=== PATIENT | female | born 1935 | race Caucasian/White ===

== ENCOUNTER 2019-04-20 11:39 | Inpatient (IN) ==
[2019-04-20] MEDS ORDERED: ASPIRIN PO ONE (11:53)
--- NOTE | 2019-04-20 12:18 | Diag Imaging Result Doc PS360 ---
EXAM: CHEST-2 VIEWS 04/20/2019 HISTORY: SOB/CP TECHNIQUE: Two views the chest COMMENT: There is blunting of the right costophrenic angle and ill-defined opacity in the adjacent parenchyma. There is a lesser degree of opacification of the left lateral costophrenic sulcus. This was not the case on 04/09/2014. The heart size is slightly enlarged. IMPRESSION: Bibasilar pneumonia with questionable pleural effusion on the right. Cardiomegaly. Electronically signed by Jack Crisostomo 04/20/2019 12:16 PM
--- NOTE | 2019-04-20 12:24 | EKG Report ---
Test Performed on : 04/20/2019 12:16:06 PM Test Reason : CP/SOB Blood Pressure : / mmHG Vent. Rate : 094 BPM Atrial Rate : 092 BPM P-R Int : 000 ms QRS Dur : 142 ms QT Int : 400 ms P-R-T Axes : 000 027 -15 degrees QTc Int : 500 ms Atrial fibrillation. Right bundle branch block Minimal voltage criteria for LVH, may be normal variant Abnormal ECG When compared with ECG of 09-APR-2014 17:02, Atrial fibrillation. has replaced Sinus rhythm. T wave inversion now evident in Lateral leads Unconfirmed Result
[2019-04-20 13:53] LABS: BASO# 0.03 X1000 (0.0-0.2); BASO% 0.4 % (0.0-0.8); EOS# 0.05 X1000 (0.0-0.7); EOS% 0.6 % (0.0-10.0); HEMATOCRIT 21.5 % (37.0-47.0); HEMOGLOBIN 6.6 g/dL (12.0-16.0); LYMPH# 1.17 X1000 (1.2-3.4); LYMPH% 13.8 % (20.5-51.1); MCH 27.3 PG (27-31); MCHC 30.7 g/dL (33-37); MCV 88.8 FL (81-99); MONO% 9.4 % (1.7-9.3); MPV 9.9 FL (7.4-10.4); NEUT# 6.43 X1000 (1.4-6.5); NEUT% 75.8 % (42.2-75.2); PLT 300 X1000 (130-400); RBC 2.42 XMIL (4.2-5.4); RDW 15.3 % (11.5-14.5); WBC 8.48 X1000 (4.8-10.8)
[2019-04-20 14:01] LABS: INR 1.1; PROTIME 14.3 Seconds (11.0-16.0); PTT 25.8 Seconds (22.3-41.8)
[2019-04-20 14:20] LABS: ALB/GLOB RATIO 1.6; ALBUMIN 3.9 g/dL (3.5-5.0); CALCIUM 9.7 mg/dL (8.8-10.2); CREATININE 1.1 mg/dL (0.5-0.9); POTASSIUM 4.3 mmol/L (3.5-5.1); TOTAL BILIRUBIN 0.33 mg/dL (0.20-1.00); TOTAL PROTEIN 6.3 g/dL (6.3-8.3)
[2019-04-20] MEDS ORDERED: TYLENOL PO ONE (14:43)
[2019-04-20] MEDS ORDERED: NS 500 ML IV ONE (14:43)
--- NOTE | 2019-04-20 15:01 | PROVIDER DOCUMENTATION ---
This chart was entered by Kelley Torres Scribe, acting as scribe for Guicho Chan MD. HPI-Chest Pain - General Chief Complaint: Chest Pain Stated Complaint: DR PRATHER SENT NEEDS BLOOD Time Seen by Provider: 04/20/19 12:16 Source: patient, family (daughter), RN/MD (dr prather) Allergies/Adverse Reactions: Patient Allergies Allergy/AdvReac Type Severity Reaction Status Date / Time adhesive Allergy HIVES Verified 04/09/14 17:07 codeine Allergy HIVES Verified 04/09/14 17:07 hydrocodone bitartrate * Allergy HIVES Verified 04/09/14 17:07 [From Lortab] morphine Allergy HIVES Verified 04/09/14 17:07 pentazocine lactate * Allergy HIVES Verified 04/09/14 17:07 [From Talwin] pregabalin [From Lyrica] Allergy HIVES Verified 04/09/14 17:07 propoxyphene HCl * Allergy HIVES Verified 04/09/14 17:07 [From Darvon] Home Medications: Home Medication List Medication Instructions Recorded Confirmed Last Taken Type Amlodipine Besylate [Norvasc] 2.5 mg PO DAILY 04/09/14 04/09/14 04/09/14 History Atorvastatin Calcium [Lipitor] 20 mg PO DAILY 04/09/14 04/09/14 04/09/14 History Iron 1 tab PO DAILY 04/09/14 04/09/14 04/09/14 History Losartan Potassium [Cozaar] 100 mg PO DAILY 04/09/14 04/09/14 04/09/14 History Multivitamin [Multi-Vitamin Daily] 1 tab PO DAILY 04/09/14 04/09/14 04/09/14 History Omeprazole [Prilosec] 20 mg PO DAILY@0700 04/09/14 04/09/14 04/09/14 History Potassium Chloride E.r. [Klor-Con] 10 meq PO DAILY 04/09/14 04/09/14 04/09/14 History - History of Present Illness-CP Nature of Presenting Problem: 84 yowf presents to the ed with c/owith Hgb 6.8 on [facility] blood work report today. dr prather sent pt to ed to receive blood. pt also sts for last 2 weeks she has had intermittent chest pain, sob, dizziness, fatigue and thoracic back pain. pt also was noted to be in afib and this would be new onset once in ed. pt on exam is pleasant and nontoxic in appearance Location: reports: substernal Chest Pain Radiation: reports: no radiation Quality of Pain: reports: aching Severity in ED: mild Onset/Duration: other (2 weeks) Timing: intermittent Context/Activities at Onset: reports: light activity Modifying Factors: improves with: rest. worse with: other (bending over and exertion) Associated Symptoms: reports: back pain, dizziness, fatigue, shortness of breath . denies: abdominal pain, nausea, syncope, vomiting Nitro Today/Relief: no nitro taken today Aspirin Treatment Today: 325 mg x 1, provided by ED Similar Symptoms Previously?: Yes Recently Seen Here or By Another Healthcare Provider: Yes (dr prather) Review of Systems - Adult - REVIEW OF SYSTEMS - ADULT Constitutional: reports: see HPI, fatique. denies: chills, fever Eyes: reports: no symptoms reported Ears, Nose, Mouth & Throat: reports: no symptoms reported Cardiovascular: reports: see HPI, chest pain. denies: palpitations, syncope Respiratory: reports: see HPI, shortness of breath. denies: cough, wheezing Gastrointestinal: denies: diarrhea, nausea, vomiting Genitourinary: reports: no symptoms reported Musculoskeletal: reports: see HPI, back pain. denies: neck pain Integumentary: reports: no symptoms reported Neurological: reports: see HPI, dizziness/vertigo. denies: headache/migraines, loss of balance, slurred speech Psychiatric: reports: no symptoms reported Endocrine: reports: no symptoms reported Hematologic/Lymphatic: reports: see HPI, low blood count, transfusions Allergic/Immunologic: reports: no symptoms reported All Other Systems: Reviewed and Negative Past History - Adult - PAST MEDICAL HISTORY-ADULT Review of Records: reports: Old Records Reviewed, Nursing Assessment Review, Medications Reviewed, Social history reviewed & non-contributory. Major Childhood Illnesses: reports: denies history Cardiovascular: reports: CHF, HTN, hyperlipidemia, PVD Respiratory: reports: denies history Gastrointestinal: reports: GI bleed, hepatitis (B) Obstetrical/Gynecological: reports: denies history Genitourinary: reports: denies history Musculoskeletal: reports: denies history Hand Dominance: Right Handed Neurological: reports: TIA Psychiatric: reports: denies history Endocrine/Immune: reports: thyroid disorder, other (parathyroid tumor) Other Conditions: reports: cataract/glaucoma - PRIOR SURGERIES/PROCEDURES Surgical/Procedure History: reports: cholecystectomy, hysterectomy, tonsillectomy, orthopedic (extremity), other (Kyphoplasty, carpal tunnel) - IMMUNIZATION STATUS Childhood Immunizations: See Nurse Assessment Flu Vaccine: See Nurse Assessment - FAMILY HISTORY Family History: reviewed, not pertinent - SOCIAL HISTORY Smoking: denies Substance Use: denies Living Situation: family Physical Exam-General - PHYSICAL EXAM-ADULT Initial Vital Signs Reviewed: Yes - CONSTITUTIONAL General Appearance: appears well, alert, no apparent distress - EYES Eyes: PERRL/EOMI - HEAD, EARS, NOSE, MOUTH & THROAT HENMT: moist mucous membranes - NECK Neck: non-tender, full range of motion, supple, normal inspection - RESPIRATORY Respiratory: chest non-tender, lungs clear, normal breath sounds - CARDIOVASCULAR Cardiovascular: irregularly irregular - CHEST (BREASTS) Chest/Breast: deferred - GASTROINTESTINAL (ABDOMEN) Abdominal Exam: normal bowel sounds, non tender, soft - GENITOURINARY Female Genitalia/Pelvic Exam: deferred Rectal Exam: normal exam, normal rectal tone. negative: hemorrhoids Hemoccult Exam: heme negative stool - LYMPHATIC Lymphatic: no adenopathy - MUSCULOSKELETAL Back Exam: no CVA tenderness, no vertebral tenderness Extremity: normal range of motion, non-tender, normal inspection - SKIN Integumentary: pallor - NEUROLOGIC Neurologic: grossly normal - PSYCHIATRIC Psych/Mental Status: normal mood/affect, normal thought content, normal thought process, oriented x 3 - HEART Score HEART Score: History: Moderately Suspicious HEART Score: ECG: Non-Specific Repolarization Disturbance/LBBB/PM HEART Score: Age: > or = 65 Years HEART Score: Risk Factors for Atherosclerotic Disease: 1 or 2 Risk Factors HEART Score: Troponin: < or = Normal Limit Total HEART Score:: 5 Progress - PLAN OF CARE/RESULTS Progress/Plan/Lab Results: Vital Signs - 8 hr 04/20/19 11:44 04/20/19 14:25 Temperature 98.0 F Pulse Rate 114 H 93 H Respiratory Rate 20 16 Blood Pressure 117/58 133/66 O2 Sat by Pulse Oximetry 99 100 04/20/19 13:35 Stool Occult Blood (MARGARITA) - Final Stool Laboratory Results - last 24 hr 04/20/19 04/20/19 04/20/19 13:35 13:35 13:35 WBC 8.48 RBC 2.42 L Hgb 6.6 L Hct 21.5 L MCV 88.8 MCH 27.3 MCHC 30.7 L RDW Std Deviation 15.3 H Plt Count 300 MPV 9.9 Neut % (Auto) 75.8 H Lymph % (Auto) 13.8 L [place] % (Auto) 9.4 H Eos % (Auto) 0.6 Baso % (Auto) 0.4 Neut # (Auto) 6.43 Lymph # (Auto) 1.17 L [place] # (Auto) 0.80 H Eos # (Auto) 0.05 Baso # (Auto) 0.03 PT INR PTT (Actin FS) Sodium 134 L Potassium 4.3 Chloride 101 Carbon Dioxide 24 L Anion Gap 9 BUN 24 H Creatinine 1.1 H Estimated GFR/1.73 m2 47 BUN/Creatinine Ratio 22 Glucose 102 Calculated Osmolality 272 Calcium 9.7 Total Bilirubin 0.33 AST 11 ALT 7 L Alkaline Phosphatase 39 Creatine Kinase 34 Troponin T High Sens [id number] Pept 2205 H Total Protein 6.3 Albumin 3.9 Globulin 2.4 Albumin/Globulin Ratio 1.6 04/20/19 04/20/19 13:35 13:35 WBC RBC Hgb Hct MCV MCH MCHC RDW Std Deviation Plt Count MPV Neut % (Auto) Lymph % (Auto) [place] % (Auto) Eos % (Auto) Baso % (Auto) Neut # (Auto) Lymph # (Auto) [place] # (Auto) Eos # (Auto) Baso # (Auto) PT 14.3 INR 1.10 PTT (Actin FS) 25.8 Sodium Potassium Chloride Carbon Dioxide Anion Gap BUN Creatinine Estimated GFR/1.73 m2 BUN/Creatinine Ratio Glucose Calculated Osmolality Calcium Total Bilirubin AST ALT Alkaline Phosphatase Creatine Kinase Troponin T High Sens 26 H [id number] Pept Total Protein Albumin Globulin Albumin/Globulin Ratio Orders Category Date Time Status Cardiac Monitoring DIRECTED Care 04/20/19 11:53 Active Consent for Test/Procedure DIRECTED Care 04/20/19 14:43 Active Notify if DIRECTED Care 04/20/19 14:43 Active Oxygen Therapy- ED Nursing DIRECTED Care 04/20/19 11:53 Active Saline Loc NOW Care 04/20/19 11:53 Active CHEST-2 VIEWS [RAD] Stat Exams 04/20/19 11:[address] ANGIOGRAM ABD/PELIVS W/CON [CT] Stat Exams 04/20/19 14:58 Ordered CBC WITH ELECTRONIC DIFF [HEME] Stat Lab 04/20/19 13:35 Completed CK PROFILE [SP CHEM] Stat Lab 04/20/19 13:35 Completed COMPREHENSIVE METABOLIC PANEL [CHEM] Stat Lab 04/20/19 13:35 Completed LRPC (RED CELLS) [BBK] Stat Lab 04/20/19 14:43 Uncollected OCCULT BLOOD SCREENING [STOOL] Stat Lab 04/20/19 13:35 Completed PRO B-NATRIURETIC PEPTIDE Stat Lab 04/20/19 13:35 Completed PROTIME WITH INR [COAG] Stat Lab 04/20/19 13:35 Completed PTT [COAG] Stat Lab 04/20/19 13:35 Completed TROPONIN T HIGH SENSITIVITY Stat Lab 04/20/19 13:35 Completed TYPE & SCREEN [BBK] Stat Lab 04/20/19 13:35 Received 0.9% Sodium Chloride Inj [Ns] 500 ml Med 04/20/19 14:43 Active IV 30 mls/hr Acetaminophen [Tylenol] Med 04/20/19 14:43 Discontinued 650 mg PO PREMED ONE Aspirin Med 04/20/19 11:53 Discontinued 325 mg PO NOW ONE CP/SOB/Palp >45 yrs of Age Stat Oth 04/20/19 11:53 Ordered EKG [EKG] Stat Ther 04/20/19 11:53 Draft Result Diagrams: 04/20/19 13:35 04/20/19 13:35 - EKG 1 Time of EKG reading by physician:: 12:16 EKG Read and Signed by:: Guicho Chan EKG Interpretation (*Must complete 3 of following elements*): Abnormal Rate: 94 Rhythm: afib [place]: normal QRS: RBB, LVH WA Interval: normal ST Wave: normal - XRAY 1 XRAY: Bilateral XRAY Study: Chest Impression: See EMR Report (EXAM: CHEST-2 VIEWS 04/20/2019 HISTORY: SOB/CP TECHNIQUE: Two views the chest COMMENT: There is blunting of the right costophrenic angle and ill-defined opacity in the adjacent parenchyma. There is a lesser degree of opacification of the left lateral costophrenic sulcus. This was not the case on 04/09/2014. The heart size is slightly enlarged. IMPRESSION: Bibasilar pneumonia with questionable pleural effusion on the right. Cardiomegaly. Electronically signed by Jack Crisostomo 04/20/2019 12:16 PM 04/20/19 1216 Interpreting Physician: Jack Crisostomo MD Dictated Date/Time: 04/20/19 1215 cc: Guicho Chan MD; Natalie Johnson) - CONSULTS/PCP/HOSPITALIST Notification #1 *Consult/PCP/Hospitalist*: Cecy INVESTIGATIVE REPORTER for Hospitalist Time Discussed: 14:59 Consult Disposition: Will see in ED, Admit Departure - Departure Date of Disposition Decision: 04/20/19 Time of Disposition Decision: 14:56 DIAGNOSIS: Anemia, Gastrointestinal bleed, Chest pain, A-fib, Renal insufficiency, CHF (congestive heart failure) Disposition: ADMITTED INPATIENT 09 Certified Medical Emergency: Emergent Condition: Fair Referrals and Follow-Ups: Natalie Johnson [Primary Care Provider] - - Critical Care Note This patient required my direct & personal management of CC.: Yes Total Time (mins): 37 Critical Care Statement: This patient required my direct personal management to treat or rule out processes, the absence of which, could potentiallly result in sudden, clinically significant life or limb threatening deterioration. Attestation - Physician/ OSIRIS Attestation Patient care was provided by Advanced Practice Provider:: No The physician spent face to face time with patient:: Yes Advanced Practice Provider documentation review:: Supervising physician onsite and consulted in the evaluation and care of this patient. The physician did have a face to face encounter with the patient. This chart was documented by the indicated scribe, (Kelley Torres Scribe) and accurately reflects the services I performed and decisions made by me, Guicho Chan MD, as attested by the provider's signature.
[2019-04-20] MEDS ORDERED: TYLENOL PO PRN (15:04)
[2019-04-20] MEDS ORDERED: ZOFRAN IV PRN (15:04)
[2019-04-20] MEDS ORDERED: NS 1,000 ML IV SCH (15:04)
[2019-04-20] MEDS ORDERED: SODIUM CHLORIDE 0.9% INJ SCH (15:15)
[2019-04-20] MEDS: PROTONIX IV SCH (15:34)
[2019-04-20 15:41] LABS: IRON SATURATION 65 %; TIBC 689 ug/dL; TOTAL IRON 450 ug/dL (49-151); UNBOUND IRON 239 ug/dL (112-346)
[2019-04-20 16:00] LABS: FERRITIN 12 ng/mL (13-150)
--- NOTE | 2019-04-20 16:23 | Diag Imaging Result Doc PS360 ---
CT ANGIOGRAM ABD/PELIVS W/CON - 04/20/2019 INDICATION: gi bleeding TECHNIQUE: Axial CT images were obtained after administering intravenous contrast. Coronal MIP images were generated. COMPARISON: 01/30/2011 FINDINGS: There is significant cardiomegaly that has worsened since prior. There is a trace pericardial effusion. There is interstitial pulmonary edema in the lung bases. There is severe vascular disease of the abdominal aorta diffusely. No aneurysm. There are kissing stents in the aortic bifurcation. The stents are patent. 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 There is severe stenosis at the origin of both renal arteries, narrowed by about 75%. The inferior mesenteric artery is grossly patent. There is very heavy disease of the iliac artery systems bilaterally, but no severe stenosis. There is severe to critical stenosis of both superficial femoral arteries with 75-90% narrowing. There are cysts of the right kidney. There is bilateral renal artery cortical scarring. There is mild to moderate constipation. No free air or free fluid. No lymphadenopathy. There is a right total hip prosthesis in good position. There is high-grade compression fracture of L5 with vertebroplasty cement inside. There is severe degeneration throughout the spine. IMPRESSION: 1. Congestive heart failure. 2. 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 Other severe vascular disease as described above. This exam was performed using automated exposure control, adjustment of mA or kV according to patient size, and/or use of iterative reconstruction technique Electronically signed by Prince Brown 04/20/2019 4:21 PM
[2019-04-20] MEDS ORDERED: LASIX IV ONE (16:28)
[2019-04-20] MEDS ORDERED: LOPRESSOR IV PRN (17:19)
[2019-04-20] MEDS ORDERED: ROCEPHIN 500 MG in NS 50 ML IV SCH (18:00)
--- NOTE | 2019-04-20 18:43 | HISTORY AND PHYSICAL ---
ADDENDUM: The patient seen and examined by me [id number]. All the laboratory, vital signs and images were reviewed. The patient was actually sent from Dr. Scherer's office due to low hemoglobin, it looks like she received treatment with iron at the clinic, she will receive 2 units of PRBCs. It has been already all ordered by the ER doctor. We also noticed that this patient's heart rate was elevated and it turns out that this is related to atrial fibrillation, which initially was in RVR, but now seems to be stable in the 90s and 100s. We did also an occult blood in the stool that is positive, her blood pressure seems to be stable, mostly between 120s and 140s. I will start this patient on a low dose of Cardizem 30 mg every 6 hours to see how she does and also Lopressor IV as needed. I will not put this patient on anticoagulation because of her gastrointestinal bleed. We will put this patient on proton pump inhibitors twice a day as well. Her physical exam is benign except for an irregularly regular rate and rhythm with systolic murmur. She is completely awake, alert, and she is oriented x3. No focal neurological deficits noted. She does have a history of vascular disease and actually we did a CT angiogram that showed a severe stenosis of origin of the superior mesenteric artery and renal arteries, and other severe vascular disease as described. Also, this each showed some CHF. She receive a dose of Lasix and the proBNP is slightly elevated at 2205. Previously, in 2015 it was 630, I do not have a recent echocardiogram and actually I do not have an echocardiogram to compare to before, so I will ask for an echocardiogram at this time. The patient seems to be stable. On the other hand, we have discussed her advanced directive. She has decided to go ahead and be a DNR level 1, so I will honor her wishes. So, I will monitor the hemoglobin and hematocrit every 6 hours. She will receive 2 units of PRBCs and we will go from there. I agree with the rest of the nurse practitioner's assessment and plan. cc: Josh Black MD
--- NOTE | 2019-04-20 19:02 | HISTORY AND PHYSICAL ---
PRIMARY CARE PROVIDER: DR. Johnson. PRIMARY OBSTETRICS SCRUB NURSE: DR. Isidro. CHIEF COMPLAINT: She went to Dr. Scherer's office who found her to be anemic and sent her here. HISTORY OF PRESENT ILLNESS: Ms. Sarah Reyez is an 84-year-old female with a medical history of iron deficiency anemia, peripheral vascular disease, multiple stents, systolic and diastolic heart failure, hepatitis B, who apparently went today for iron infusion. She has been feeling weak, having some shortness of breath, and chest pressure for about a week. The dark stools that she has complained about she has had those for years. She feels like it is not any different than it has ever been. Her normal bowel movement regimen tends to be one every 3 or 4 days. Sometimes, she does have abdominal cramps and has diarrhea from time to time but not very often. As far as the chest pressure goes, it does not radiate in any direction. She has not been coughing up any colors, she has just been having the chest pressure and some shortness of breath. Denies any lower extremity swelling so workup was performed. She had a CT of the abdomen that did show some mesenteric artery and renal artery stenosis, and congestive heart failure. She denies any abdominal pain with this. Also, found she has new atrial fibrillation; rate is somewhat controlled. On chest x-ray, she has pneumonia. The stool that was sampled was positive for blood so she is going to be admitted for further treatment and evaluation. PAST MEDICAL HISTORY: 1. Coronary artery disease. 2. Peripheral vascular disease with bilateral iliac and descending aortic stents. 3. Hypertension. 4. TIA in 2005. 5. Systolic and diastolic congestive heart failure. 6. History of hepatitis B. 7. Polyps with polypectomies. 8. History of GI bleed. 9. Iron deficiency anemia with history of iron transfusions. 10. Carotid tumors with removal, and states that the carotid artery disease she has completely occluded on the left and only has 30% that is not occluded on the right. PAST SURGICAL HISTORY: 1. Cholecystectomy. 2. Tonsillectomy. 3. Hysterectomy. 4. Last colonoscopy with polypectomy is in 2019. 5. Cataract. 6. Right parotid tumor removed. 7. Right carotid surgery. 8. Cystoscopy. 9. Parotid tumor removed on the left so she has had bilateral parotid tumors removed. 10. Bilateral carpal tunnel. 11. Right femoral stent. 12. Kyphoplasty. 13. Total right hip. SOCIAL HISTORY: She denies tobacco, alcohol or illicit drug use. She lives with her daughter. 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 FAMILY HISTORY: Mother: No medical conditions. Father had heart attack. ALLERGIES: Adhesives, codeine, hydrocodone, morphine, Talwin, Lyrica, propoxyphene, and they all cause hives. HOME MEDICATIONS: Not been reconciled. What she has on a printout that she gave me was: 1. Cilostazol 50 mg twice daily. 2. Cozaar 100 mg daily. 3. Norvasc 10 mg daily. 4. Tricor 48 mg daily. 5. Protonix 40 mg p.o. daily. 6. Lipitor 80 mg daily. 7. Vitamin D3 1000 units daily. 8. B12 600 mg daily. 9. Calcium 200 mg daily. 10. Aspirin 81 mg daily. REVIEW OF SYSTEMS: Fourteen point review of systems are complete. All were negative except those mentioned above in HPI. PHYSICAL EXAMINATION: VITAL SIGNS: Temperature 97.8, heart rate 99, respiratory rate 14, blood pressure 131/62, and O2 saturation 97% on room air. GENERAL: Ms. Sarah Reyez is an 84-year-old female. She is in no acute distress. She is able to answer questions appropriately. HEENT: Atraumatic, normocephalic. Pupils equal, round, and reactive to light. Extraocular movements intact. Mucous membranes are moist. NECK: Trachea midline. CARDIOVASCULAR: Irregularly irregular rate and rhythm. No rubs, gallops, murmurs. Trace lower extremity edema. +2 dorsalis and radial pulses. Actually, she does have a murmur. She has a prior about a 3/6 systolic ejection murmur. Negative for JVD or carotid bruits. PULMONARY: Clear to auscultation. Bilateral breath sounds. No accessory muscle use or work of breathing noted. ABDOMEN: Soft, nontender, and nondistended. Positive bowel sounds x4. EXTREMITIES: Moves all extremities equally. Full range of motion. NEUROLOGIC: A and O x3. Follows commands. Sensory is intact. SKIN: Warm and dry. Intact. LABORATORY DATA: White blood cells 8000 hemoglobin 6.6, hematocrit 21.5, and platelet count 300,000. INR is 1.10 PTT is 25.8. Sodium 134, potassium 4.3, BUN 24, creatinine is 1.1 and glucose 102. Iron is 450. Total iron binding capacity is 689, saturation 65, ferritin 12, T bilirubin is 0.33, AST 11, ALT 7. CK 34. Troponin 26. ProBNP is 205. Albumin 3.9. Vitamin B12 is 1245. 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 Chest x- ray: Bibasilar pneumonia, questionable right pleural effusion and cardiomegaly. EKG atrial fibrillation, rate 94, and QTc was 500. ASSESSMENT/PLAN: 1. New onset atrial fibrillation without RVR at this time. No medical history. She is only on aspirin at home. We will get a consult in for Cardiology and do an echocardiogram. Hold off on blood thinners right now as she is actually here with a GI bleed and low hemoglobin and hematocrit. 2. Most likely upper GI bleed. All of her bowel movements have been dark. She has no pain with it. She actually has constipation, and only bowel movement once every 3 or 4 days, but occasionally will have diarrhea. The stool sample that was sent was positive for blood. She does have history of polyps and most recently had polypectomy [place] [address] Isidro. We will put a consult in for GI. 3. Acute blood loss anemia secondary to GI bleeding. She will get 2 units of blood. Vital signs stable. 4. Iron deficiency anemia. She sees Dr. Scherer and gets iron transfusions. We will consult him. Her iron level is actually on the high side. 5. Possibly a mild acute systolic diastolic congestive heart failure. Since she is getting blood, we are going to go ahead and give her some Lasix with that blood. She does not take Lasix at home. She does not have significant lower extremity edema. 6. Mild acute kidney injury. Again, she will get some IV fluid hydration. We will recheck the labs in the morning. 7. Hypertension. Once home medications are verified, we will get those started. 8. History of TIA and severe peripheral arterial disease with multiple stents. At home, she is only on aspirin. I believe Dr. Scherer stopped her Plavix on the of this month. 9. Deep venous thrombosis prophylaxis. SCD's. Dictated by BOBBY Jauregui for Josh Black MD cc: BOBBY Jauregui MD
[2019-04-20] MEDS ORDERED: ULTRAM PO PRN (19:15)
[2019-04-20] MEDS: CARDIZEM PO SCH (20:13)
[2019-04-20] MEDS: CARAFATE LIQUID PO SCH (20:13)
[2019-04-20 21:48] LABS: CALCIUM 9.5 mg/dL (8.8-10.2); MAGNESIUM 2.1 mg/dL (1.5-2.7); PHOSPHORUS 3.4 mg/dL (2.7-4.5); POTASSIUM 3.9 mmol/L (3.5-5.1)
[2019-04-20 22:25] LABS: HEMATOCRIT 26.6 % (37.0-47.0); HEMOGLOBIN 8.2 g/dL (12.0-16.0)
[2019-04-21] MEDS: CARAFATE LIQUID PO SCH ×2 (02:43→08:39)
[2019-04-21] MEDS: CARDIZEM PO SCH ×2 (02:43→08:39)
[2019-04-21] MEDS: PROTONIX IV SCH (02:45)
[2019-04-21 03:00] LABS: HEMATOCRIT 30.7 % (37.0-47.0); HEMOGLOBIN 9.7 g/dL (12.0-16.0)
[2019-04-21 07:05] LABS: BASO# 0.04 X1000 (0.0-0.2); BASO% 0.5 % (0.0-0.8); EOS# 0.09 X1000 (0.0-0.7); EOS% 1.1 % (0.0-10.0); HEMATOCRIT 30.5 % (37.0-47.0); HEMOGLOBIN 9.4 g/dL (12.0-16.0); LYMPH# 0.81 X1000 (1.2-3.4); LYMPH% 9.6 % (20.5-51.1); MCH 26.6 PG (27-31); MCHC 30.8 g/dL (33-37); MCV 86.2 FL (81-99); MONO# 0.93 X1000 (0.11-0.59); MPV 10.2 FL (7.4-10.4); NEUT# 6.58 X1000 (1.4-6.5); NEUT% 77.8 % (42.2-75.2); PLT 291 X1000 (130-400); RBC 3.54 XMIL (4.2-5.4); WBC 8.45 X1000 (4.8-10.8)
[2019-04-21 07:23] LABS: ALB/GLOB RATIO 1.3; ALBUMIN 3.9 g/dL (3.5-5.0); CALCIUM 9.2 mg/dL (8.8-10.2); POTASSIUM 3.4 mmol/L (3.5-5.1); TOTAL BILIRUBIN 0.69 mg/dL (0.20-1.00)
[2019-04-21 10:54] LABS: HEMATOCRIT 30.5 % (37.0-47.0); HEMOGLOBIN 9.5 g/dL (12.0-16.0)
--- NOTE | 2019-04-21 11:18 | GASTROENTEROLOGY CONSULTATION ---
DATE: 04/21/2019 REASON FOR CONSULT: GI bleed. HISTORY OF PRESENT ILLNESS: Ms Reyez is an 84-year-old female HTN, HLD, CAD, PVD with LE stents and CEA, CHF, LESLIE, colonic AVMs, colonic polyps, gastritis who presented from Dr. Scherer's office with worsening acute on chronic anemia hgb w/ intermittent melenic stools. She also complained of shortness of breath, feeling like a pressure is on chest, back pain, but denied any abdominal pain, nausea or vomiting. No gross hematochezia, hematemesis, blood clots, or abdominal pain. On admission her hemoglobin and hematocrit was 6.6 and 21.5. She has received 2 units of blood so far. The patient used to take Plavix and it was stopped by Dr. Scherer on 04/14 and he started her on aspirin 81 mg 1 tablet daily. She had EGD and colonoscopy in 09/2018. No prior capsule endoscopy, which was recommended in the past. PAST MEDICAL HISTORY: Coronary artery disease, peripheral vascular disease with bilateral iliac and descending aorta stents, hypertension, TIA in 2005, congestive heart failure, history of hepatitis B, history of polyps, history of GI bleed, iron deficiency anemia with history of iron transfusions PAST SURGICAL HISTORY: Cholecystectomy, tonsillectomy, hysterectomy, cataracts, right parotid tumor removed, right carotid surgery, cystoscopy, left parathyroid tumor removed, bilateral carpal tunnel, right femoral stent, kyphoplasty, total right hip replacement. ALLERGIES: The patient is allergic to is adhesives, codeine, hydrocodone, morphine, Talwin, Lyrica, Betadine, Darvon and its compounds.. FAMILY HISTORY: Positive for heart disease. SOCIAL HISTORY: The patient is a . She lives with a daughter. She has denied any alcohol, tobacco, or illicit drug use. MEDICATIONS ARE: Atorvastatin, calcium 80 mg p.o. daily, amlodipine besylate 10 mg p.o. daily, Losartan potassium 100 mg p.o. daily, aspirin 81 mg p.o. daily, B12/levomefolate calcium 1 tablet sublingual daily, vitamin D3 1000 units p.o. daily. Cilostazol 50 mg p.o. twice a day. Tricor 48 mg p.o. daily, Protonix 40 mg p.o. daily. aspirin REVIEW OF SYSTEMS: As per HPI. Otherwise, 12 point review of system is negative. PHYSICAL EXAMINATION: Vital Signs: Temperature 97.9 degrees, pulse 87, respirations 20, blood pressure 141/57, oxygen saturation is 93% on room air. The patient's weight is 133 pounds. BMI is 22.8 kg/m2. General: She is alert, oriented x3. No acute distress. Answering questions appropriately. HEENT: Pale conjunctivae. No icterus. PERRL. Neck: Supple. Lungs: Clear to auscultation. Cardiovascular: Regular rate and rhythm. Abdomen: Soft, nontender, nondistended. Active bowel sounds heard in all 4 quadrants. Extremities: No clubbing, no cyanosis, no edema. Pedal pulses 2+ present bilaterally. Neurologic: Alert oriented x3. Nonfocal. Cranial nerves 2- 12 grossly intact. LABORATORY DATA: WBCs are 8.45, RBC 3.54, hemoglobin 9.4, hematocrit 30.5, platelet count 291,000. PT 14.3, INR is 1.10. Sodium 138, potassium 3.4, chloride 100, carbon dioxide 24, anion gap 14, BUN 17, creatinine 1.0, glucose 106, calcium 9.2, magnesium 2.0, total bilirubin 0.69, AST 15, ALT 7, alkaline phosphatase is 44. MICROBIOLOGY: The patient's occult stool blood was positive. 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 The other severe vascular disease as described. A chest x-ray on 04/20 showed bibasilar pneumonia with questionable pleural effusion on the right, cardiomegaly. EGD/colonoscopy 09/2018 She is a patient of Dr. Isidro and had a colonoscopy and EGD done on 10/12/2018. The EGD showed that she had erosive gastritis in the body of the stomach, normal cardia, fundus, and incisura, normal duodenal bulb polyp. A polyp was found in the second portion of the duodenum. Colonoscopy showed five small and medium size polyps were found in the splenic flexure polypectomy was performed. A single medium-size polyp was found in the descending colon which was removed. Area of angiectasias/AVM was found in the cecum and the ascending colon. Internal grade 2 hemorrhoids found in the anus. Tattoo noted at the splenic flexure from the previous polypectomy. Small flat polyps noted in the left colon that will be removed in the next colonoscopy in 1 to 2 years. Biopsy was done and it showed that the splenic flexure polyps x5 biopsy showed that she had a tubular adenoma, but no high-grade dysplasia or neoplasia was seen in the descending colon. One polyp biopsy showed tubular adenoma. No high-grade dysplasia or neoplasia noted. IMPRESSION AND PLAN: GI bleed Acute on chronic LESLIE Iron deficiency anemia Gastritis Colonic AVMs History of polyps Hemorrhoids CAD PVD Hypertension PLAN: Ms Reyez is an 84-year-old female HTN, HLD, CAD, PVD with LE stents and CEA, CHF, LESLIE, colonic AVMs, colonic polyps, gastritis who presented with worsening acute on chronic LESLIE anemia hgb w/ intermittent melenic stools. GI has been consulted for a GI bleed. The patient's hemoglobin and hematocrit on admission was 6.6 and 21.5. She has received 2 units of blood so far. Her hemoglobin and hematocrit now is 9.4 and 30.5. Platelets and coags WNL. She is on PPI IV BID and NPO. Will plan for diagnostic EGD. If negative, patient will need outpatient capsule endoscopy. Thank you for the consult. Please call us for any further questions or concerns. Dictated by BOBBY Garcia for Kalyan Perea MD Physician Attestation I have seen and examined the patient. I have discussed and reviewed the note by Usha ROSALES and agree with findings and plan as documented. Patient has had intermittent melenic stools since her last admission in 09/2018. She was on plavix and recently aspirin. Will plan for EGD. If negative, then will need capsule. MTDD
--- NOTE | 2019-04-21 11:25 | ENDOSCOPY OPERATIVE NOTE ---
[facility] ENDOSCOPY OPERATIVE NOTE , EGD PROCEDURE REPORT EXAM DATE: 04/21/2019 PATIENT NAME: Sarah Reyez MR#: [id number] BIRTHDATE: 1935 ATTENDING: Kalyan Perea MD STATUS: inpatient MOLD PULLER: INDICATIONS: The patient is a 84 yr old female here for an EGD due to melena and iron deficiency ane taylor. PROCEDURE PERFORMED: EGD, diagnostic MEDICATIONS: Per Anesthesia ESTIMATED BLOOD LOSS: None CONSENT: The patient understands the risks and benefits of the procedure and understands that these r isks include, but are not limited to: sedation, allergic reaction, infection, perforation and/or bleeding. Alternative means of evaluation and treatment include, among others: physical exam, x-rays, and/or surgical intervention. The patient elects to proceed with this endoscopic procedure. DESCRIPTION OF PROCEDURE: During pre-op preparation period all mechanical and medical equipment was c hecked for proper function. Hand hygiene and appropriate measures for infection prevention was taken. After the risks, benefits and alternatives of the procedure were thoroughly explained, Informed consent was verified, confirmed and timeout was successfully executed by the treatment team. The patient was anesthetized with topical anesthesia and the DN31-s16 ([id number]) endoscope was introduced through the mouth and advanced to the second portion of the duoden um. Retroflexion was performed in the stomach and revealed no abnormalities. The gastroscope was then slowly withdraw n and removed. The patient's toleration of the procedure was excellent. ESOPHAGUS: The mucosa of the esophagus appeared normal. STOMACH: The stomach was normal. DUODENUM: Small lipoma in second portion of duodenum. ADVERSE EVENTS: There were no complications. IMPRESSIONS: 1. The mucosa of the esophagus appeared normal 2. The stomach was normal 3. Lipoma RECOMMENDATIONS: Stop IV PPI, transition to PO once daily Advance diet as tolerated Recommend outpatient capsule endoscopy Avoid NSAIDs Patient can be discharged per primary with follow-up in 2-4 weeks REPEAT EXAM: Kalyan Perea MD eSigned: Kalyan Perea MD 04/21/2019 11:24 AM CC: CPT CODES: 86687 Upper gastrointestinal endoscopy including esophagus, stomach, and either the du odenum and/or jejunum as appropriate; diagnostic, with or without collection of specimen(s) by brushing or washing (separate procedure) ICD CODES: 578.1 Blood in stool 280.9 Iron deficiency anemia,unspecified The ICD and CPT codes recommended by this software are interpretations from the data that the [facility] staff has captured with the software. The verification of the translation of this report to the ICD and CPT co breanna and modifiers is the sole responsibility of the health care institution and practicing physician where this report was generated. [employer] will not be held responsible for the validity of the ICD and CPT codes i ncluded on this report. [employer] assumes no liability for data contained or not contained herein. CPT is a registered tra demark of the [employer]. PATIENT NAME: Sarah Reyez MR#: [id number]
[2019-04-21] MEDS ORDERED: XYLOCAINE-MPF 2% ONE (11:26)
[2019-04-21] MEDS ORDERED: AMIDATE ONE (11:27)
--- NOTE | 2019-04-21 12:43 | ECHO REPORT ---
ORDER DATE: 04/21/2019 INTERPRETING PHYSICIAN: Quang Zamorano MD. ECHOCARDIOGRAPHIC MEASUREMENTS: 1. Interventricular septum 1.2. 2. Left ventricular posterior wall 1.2. 3. Diastolic diameter 3.9. 4. Left atrium 4. 5. Aorta 3.2. FINDINGS: 1. Aortic valve leaflets were trileaflet, calcified. 2. There is severe biatrial enlargement. 3. Mitral valve was normal. There is mitral annular calcification. 4. Tricuspid valve was normal. There is mild mitral regurgitation. 5. Atrial fibrillation was noted. 6. There is moderate tricuspid regurgitation. Peak velocity across the tricuspid valve was 3 m/sec. Pulmonary artery systolic pressure 50 mmHg. 7. Normal left ventricular cavity size. Concentric left ventricular hypertrophy. Estimated ejection fraction of 70%. 8. Peak velocity across the aortic valve was 3.2 m/sec with a maximum gradient of 40 mmHg with a mean gradient of 21 mmHg, aortic valve area of 1 cm2. There is there is moderate aortic stenosis. 9. Anterior echo-free space suggestive of pericardial fat pad noted. 10. There is no pericardial effusion or obvious intracardiac mass or thrombus seen. cc: MD Josh Cordova MD
--- NOTE | 2019-04-21 13:38 | CONSULTATION ---
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 HPI: Patient presented to our office yesterday to receive IV iron for iron deficiency anemia that was noted the prior week. She came in yesterday with complaints of fatigue, dizziness and lightheadedness. She had noted some bright red bleeding on her toilet paper while wiping. She is noted to have grade 2 hemorrhoids. The patient was just recently told to stop plavix. Upon evaluation of yesterday's CBC the patient was found to have dropped a significant amount in her hemoglobin to 6.8. She was symptomatic. We sent her to the ER for a blood transfusion and which she was ultimately admitted. Patient has a history of iron deficiency anemia and peripheral vascular disease, multiple stents, systolic and diastolic heart failure. She admitted that she was having some shortness of breath and chest pressure for the past week. She has had recent dark stool. PAST MEDICAL HISTORY: 1. Coronary artery disease. 2. Peripheral vascular disease with bilateral iliac and descending aortic stent. 3. Hypertension. 4. TIA in 2005. 5. Systolic and diastolic congestive heart failure. 6. History of hepatitis B. 7. History of GI bleed. 8. Iron deficiency anemia with history of iron transfusions. 9. Carotid tumors with removal and states that the carotid artery disease she has completely occluded on the left and only 30% not occluded on the right. PAST SURGICAL HISTORY: 1. Cholecystectomy. 2. Tonsillectomy. 3. Hysterectomy. 4. Colonoscopy with polypectomy in 2019. 5. Cataract. 6. Right parotid tumor removal. 7. Right carotid surgery. 8. Cystoscopy. 9. Parotid tumor removed on the left so she has had bilateral parotid tumors removed. 10. Bilateral carpal tunnel. 11. Right femoral stent. 12. Kyphoplasty. 13. Total right hip. SOCIAL HISTORY: The patient denies tobacco, alcohol or illicit drug use. ALLERGIES: Adhesives, codeine, hydrocodone, morphine, Talwin, Lyrica, propoxyphene. HOME MEDICATIONS: Norvasc, aspirin, Lipitor, B12, B6 vitamin, vitamin D3, cilostazol, Tricor, Cozaar and Protonix, recently stopped Plavix. REVIEW OF SYSTEMS: Pertinent positives are noted in the HPI. PHYSICAL EXAMINATION: Vital Signs: Temperature 97.8 degrees, pulse rate 87, respiratory rate 20, blood pressure 141/73, O2 saturation 96% on room air, she is in 0/10 pain. General: Patient is in no acute distress. She feels quite well today. HEENT: Sclerae is anicteric. PERRLA. Oral mucosa is normal. Cardiovascular: Irregular rate and rhythm. Systolic murmur noted. Normal S1, S2. Trace lower extremity edema. Respiratory: Lungs are clear to auscultation. Normal respiratory effort. Abdomen: Soft, nontender, nondistended. Positive bowel sounds. Extremities: Moves all extremities at will. Neurological: A and O x3. No focal motor deficits noted. Skin: Warm, dry, and intact. No evidence of petechiae, ecchymosis or rashes. LABORATORY: WBCs 8.54, hemoglobin 9.5, hematocrit 30.5, platelet count 291,000, ANC 6.58. Potassium 3.4, creatinine 1.0. Her iron panel is falsely elevated due to receiving iron just hours before. RADIOLOGY: Echocardiographic report shows patient is in atrial fibrillation with an ejection fraction of 70%. 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 Chest x-ray shows bibasilar pneumonia with questionable pleural effusions on the right and cardiomegaly. ASSESSMENT: 1. Acute blood loss anemia secondary to gastrointestinal bleeding, the patient received 2 units of packed red blood cells. Her hemoglobin and hematocrit has improved, the patient feels much better, vital signs are stable. 2. New onset atrial fibrillation without rapid ventricular response. Patient has been medical history of atrial fibrillation. Continue to consult Cardiology. 3. Gastrointestinal bleeding. Consult GI. Patient has had black bowel movements as well as constipation. Patient will receive an EGD possibly today. 4. Iron deficiency anemia. The patient has a long history of iron deficiency anemia, the patient did receive intravenous Injectafer 750 mg on 04/20/2019 she will receive a 2nd dose next week. 5. Deep venous thrombosis prophylaxis. Keep the patient on sequential compression devices, hold anticoagulant due to patient experiencing gastrointestinal bleeding. Dictated by BOBBY Pavon for Alexi Scherer MD Patient seen and examined. As above. Patient has chronic GI bleeding due to AVMs followed by . She has received IV iron multiple times. She received IV iron last on 12/21/18 for hemoglobin of 8.4. On 01/17/19 hemoglobin improved to 11.2. She dropped to 8.8 on 04/12/19. We made arrangements for IV iron saw her back a week later and her hemoglobin had dropped to 6.8. This time she has dropped her hemoglobin faster than usual. She was admitted to the hospital for GI evaluation, blood and IV iron. Alexi Scherer MD cc: Alexi Scherer MD [facility]
--- NOTE | 2019-04-21 14:27 | PROGRESS NOTE ---
DATE: 04/21/2019 SUBJECTIVE: Patient has no major complaints. OBJECTIVE: Vital Signs: Blood pressure 117/56, heart rate of 83, respiratory rate of 17, temperature 97.6 degrees. Cardiovascular: Regular rate and rhythm. Pulmonary: Bilateral breath sounds clear to auscultation. Abdomen: Soft, nontender, nondistended. Bowel sounds are positive. LABORATORY DATA: White count is 8, hemoglobin and hematocrit 9 and 30, platelets 291,000. Potassium 3.4, creatinine 1. PROBLEM LIST: 1. Atrial fibrillation with rapid ventricular response. Unclear if this is new onset, but in any case, she is rate controlled. Obviously we cannot anticoagulate her, which is a concern because she is high risk for stroke. I have discussed this with the family. 2. Symptomatic anemia. She has received 2 units of blood, and hemoglobin and hematocrit is stabilized. We will continue to follow closely. 3. Gastrointestinal bleed. Unclear source. Her upper endoscopy was really normal. Colonoscopies have revealed polyps and arteriovenous malformations in the past but no acute bleed, so she is going to be due to set up for a capsule endoscopy with Dr. Duane kumar who is doing those now and then evaluation subsequently. 4. Mesenteric ischemia SMA stenosis. We will continue to monitor. I have asked Dr. Moreno to evaluate for treatment options and we will continue to follow. If her hemoglobin and hematocrit are stable, she possibly could go home later today or tomorrow. cc: Fredo Dacosta MD
[2019-04-21 18:54] LABS: HEMATOCRIT 30.7 % (37.0-47.0); HEMOGLOBIN 9.7 g/dL (12.0-16.0)
--- NOTE | 2019-04-21 18:55 | CONSULTATION ---
DATE OF CONSULTATION: 04/21/2019 IMPRESSION: 1. Atrial fibrillation with rapid ventricular rate on presentation, probably ongoing for several days. Heart rate now better controlled. 2. Associated symptoms of chest pressure, possibly rate related angina in setting of atrial fibrillation with rapid ventricular rate and significant anemia. 3. Recent recurrent gastrointestinal blood loss requiring transfusion. 4. Atherosclerotic coronary disease. 5. Peripheral vascular disease. 6. Previous transient ischemic attack. 7. Hypertension. 8. Aortic murmur suggesting some degree of aortic stenosis. RECOMMENDATIONS: 1. Continue diltiazem for rate control, but favor transitioning to oral beta-eugene. 2. Echocardiography. 3. For now given recent gastrointestinal blood loss, we will hold off on anti-platelet therapy or anticoagulation pending further GI evaluation. HISTORY: This 84-year-old white female with a past history of atherosclerotic coronary disease, significant peripheral vascular disease, previous GI blood loss with reportedly negative colonoscopy and an upper GI endoscopy, hypertension, transient ischemic attack, diastolic heart failure, and recent continued treatment with dual antiplatelet therapy was admitted with episodic chest pressure and back discomfort provoked by physical activity. She had some mild palpitations. She has also had some shortness of breath. She has been having dark stools of late. She was found to have atrial fibrillation with rapid ventricular rate on presentation, as well as significant anemia. She has been transfused packed red cells and is feeling better. Heart rate has come under control with oral diltiazem. She presently denies chest discomfort or shortness of breath. She is not aware of any previous problems with atrial fibrillation in the past. She has been on dual antiplatelet therapy of late. She has a history of previous GI blood loss with colonoscopy and upper GI endoscopy unrevealing. There has been some consideration for a pill camera examination of the small bowel. PAST MEDICAL HISTORY: 1. Atherosclerotic coronary disease. 2. Peripheral vascular disease with bilateral iliac and descending aorta stents. 3. Previous transient ischemic attack. 4. Previous right carotid endarterectomy. 5. Chronic diastolic heart failure. 6. Hypertension. 7. Colonic polyps. 8. Previous GI blood loss of unclear etiology. 9. History of removal of carotid tumor. PAST SURGICAL HISTORY: Includes cholecystectomy, tonsillectomy, hysterectomy, cataract procedure, right parotid tumor removal, right carotid surgery, parotid tumor removal on the left, bilateral carpal tunnel release, right femoral artery stent, kyphoplasty, and total hip replacement. ALLERGIES: She is allergic or intolerant to adhesives, codeine, hydrocodone, morphine, Talwin, Lyrica, propoxyphene. MEDICATIONS PRIOR TO ADMISSION: As listed. SOCIAL HISTORY: The patient has a history of chronic cigarette use. She does not use alcohol. FAMILY HISTORY: Negative for premature coronary disease. REVIEW OF SYSTEMS: Pulmonary: Noncontributory beyond history of present illness. Gastrointestinal: Noncontributory beyond history of present illness. Constitutional: Noncontributory beyond history of present illness. Other Systems: Remainder of review of systems negative/noncontributory beyond history present illness with 14 total systems reviewed. PHYSICAL EXAMINATION: General: This is an elderly white female in no distress on room air. Vital Signs: Blood pressure 117/56, heart rate 83 and irregular with ECG monitor showing atrial fibrillation. Oxygen saturation 97% on room air. HEENT: Extraocular movements intact. Mucous membranes are moist. Neck: Supple without jugular venous distention. Bilateral carotid bruits versus radiated aortic murmur demonstrated. Chest: Clear to auscultation. Cardiac: Exam reveals a regular rate and rhythm with grade 2/6 systolic murmur at the right upper sternal border. Gallop could not be appreciated. Abdomen: Soft. Bowel sounds are normal. Extremities: Without edema. Neurologic: Reveals her to be alert and fully oriented. Speech is fluent. She moves all 4 extremities equally well. Skin: Warm and dry. Psychiatric: Reveals her mood to be appropriate. DIAGNOSTIC DATA: A 12-lead EKG demonstrates atrial fibrillation and right bundle-branch block. Most recent laboratory data includes white blood cell count 8.45, hematocrit 30.5, hemoglobin 9.5, platelet count 291,000. Sodium 138, potassium 3.4, chloride 100, carbon dioxide 24, BUN 17, creatinine 1, glucose 106. CPK 34. Troponin T I sensitivity 26. Echocardiography performed today reports moderate calcific aortic stenosis with calculated valve area 1 cm sq. The peak gradient 40 and a mean gradient of 21 mmHg. Left hypertrophy is demonstrated with left ejection fraction of 70%. Moderate tricuspid regurgitation is demonstrated. Estimated systolic PA pressure is 50 mmHg. Mild mitral regurgitation demonstrated. cc: Ze Dawn MD
[2019-04-21] MEDS: LOPRESSOR PO SCH (20:44)
[2019-04-21] MEDS: PLETAL PO SCH (20:44)
[2019-04-22] MEDS: LOPRESSOR PO SCH (04:28)
[2019-04-22 05:48] LABS: BASO# 0.05 X1000 (0.0-0.2); BASO% 0.6 % (0.0-0.8); EOS# 0.14 X1000 (0.0-0.7); EOS% 1.7 % (0.0-10.0); HEMATOCRIT 29.9 % (37.0-47.0); HEMOGLOBIN 9.5 g/dL (12.0-16.0); IMM GRAN# 0.02 X1000 (0.0-0.04); IMM GRAN% 0.2 % (0.0-0.5); LYMPH# 1.31 X1000 (1.2-3.4); LYMPH% 15.5 % (20.5-51.1); MCH 27.2 PG (27-31); MCHC 31.8 g/dL (33-37); MCV 85.7 FL (81-99); MONO# 1.22 X1000 (0.11-0.59); MONO% 14.5 % (1.7-9.3); MPV 10.2 FL (7.4-10.4); NEUT% 67.5 % (42.2-75.2); PLT 298 X1000 (130-400); RBC 3.49 XMIL (4.2-5.4); WBC 8.44 X1000 (4.8-10.8)
[2019-04-22 06:18] LABS: ALB/GLOB RATIO 1.3; ALBUMIN 3.7 g/dL (3.5-5.0); CALCIUM 9.1 mg/dL (8.8-10.2); CREATININE 1.1 mg/dL (0.5-0.9); MAGNESIUM 2.1 mg/dL (1.5-2.7); TOTAL BILIRUBIN 0.54 mg/dL (0.20-1.00); TOTAL PROTEIN 6.6 g/dL (6.3-8.3)
[2019-04-22] MEDS ORDERED: PROTONIX PO SCH ×2 (07:00)
--- NOTE | 2019-04-22 08:09 | GENERAL SURGERY CONSULTATION ---
DATE: 04/22/2019 CHIEF COMPLAINT: GI bleeding. REASON FOR CONSULTATION: I have been asked to see her regarding possible SMA stenosis. HISTORY OF PRESENT ILLNESS: This is a pleasant 84-year-old lady, who was admitted on the due to severe iron-deficiency anemia. Her hemoglobin was noted to be 8.2, hematocrit 26. Her CT scan was done, and there was a suggestion of an SMA stenosis; therefore I have been asked to evaluate her. She denies abdominal pain. She denies postprandial pain. She denies significant weight loss. She does have a history of bilateral iliac stents. Her past history is pertinent for coronary artery disease, hypertension, congestive heart failure, hepatitis B, recurrent GI bleeding. PAST SURGICAL HISTORY: Previous surgery includes a cholecystectomy, tonsillectomy, hysterectomy, cataract removal, apparently bilateral parotid removal, right carotid endarterectomy in 2005, carpal tunnel repair bilaterally, total right hip arthroplasty, kyphoplasty. MEDICATIONS: Listed and has included antiplatelet therapy. ALLERGIES: She has multiple allergies that are noted. FAMILY HISTORY: Pertinent for ischemic heart disease. SOCIAL HISTORY: She is a former smoker, but no longer smokes. She denies alcohol or illicit drug use. REVIEW OF SYSTEMS: Negative in all 10 subsystems, except as noted above. PHYSICAL EXAMINATION: Vital Signs: She is afebrile. Heart rate 85, blood pressure 132/59. Neck: No cervical adenopathy. Lungs: Bilateral breath sounds. Heart: Regular rate and rhythm. Abdomen: Soft, nontender. Bowel sounds are present. Extremities: Femoral pulses are present. No peripheral edema. Neurologic: She is awake and alert. ASSESSMENT: Clinically she does not present as chronic mesenteric ischemia. I do not think her gastrointestinal bleeding is related to the superior mesenteric artery finding. I will simply recommend that we follow up with her in the office to see if she develops any further symptoms. Additionally she has 2 other widely patent mesenteric arteries that often compensate for any possible stenosis in the third artery. So, my recommendation would simply be to follow up in my office in the future. cc: Yaya Moreno MD
[2019-04-22] MEDS: PLETAL PO SCH (08:34)
[2019-04-22] MEDS ORDERED: FOLTX PO SCH (09:00)
[2019-04-22] MEDS ORDERED: COZAAR PO SCH (09:00)
[2019-04-22] MEDS ORDERED: LIPITOR PO SCH ×2 (09:00)
[2019-04-22] MEDS ORDERED: VITAMIN D PO SCH (09:00)
[2019-04-22] MEDS ORDERED: NORVASC PO SCH (09:00)
[2019-04-22] MEDS ORDERED: ASPIRIN PO SCH (09:00)
[2019-04-22] MEDS ORDERED: TRICOR PO SCH (09:00)
[2019-04-22] MEDS ORDERED: KLOR-CON PO ONE (12:38)
[2019-04-22 12:59] VITALS: BP 103/65
--- NOTE | 2019-04-22 15:45 | CARDIOLOGY PROGRESS NOTE ---
DATE: 04/22/2019 SUBJECTIVE: Ms. Reyez has no complaints today. Apparently no bleeding issues. She has had no heart racing. PHYSICAL EXAMINATION: She is afebrile. Heart rate 79, blood pressure 121/74. Heart rates over the last 24 hours have been in the 70s to 90s. Generally: No acute distress. Cardiovascular: She sounds to be in an irregularly irregular rhythm. She has no murmurs. She has no S3. She has no lower extremity edema. PERTINENT DATA: White count 8.4, hematocrit 29.9, platelet count is 298,000. Sodium 138, potassium 3.0, BUN 17, creatinine is 1.1 Mag level is 2.1. ASSESSMENT: Ms. Reyez is an 84-year-old female who presented with a significant gastrointestinal bleed. She has been in atrial fibrillation. PLAN: Anticoagulation is being held at this time until cleared by GI. I will change her metoprolol to 50 b.i.d. I will order EKG for today. From my standpoint, she can be discharged with follow up as an outpatient with cardiology. 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 cc: Fredy Cleveland MD
--- NOTE | 2019-04-22 17:46 | EKG Report ---
Test Performed on : 04/22/2019 3:00:16 PM Test Reason : afib Blood Pressure : / mmHG Vent. Rate : 092 BPM Atrial Rate : 111 BPM P-R Int : 000 ms QRS Dur : 144 ms QT Int : 422 ms P-R-T Axes : 000 032 007 degrees QTc Int : 521 ms Atrial fibrillation. Right bundle branch block Abnormal ECG When compared with ECG of 20-APR-2019 12:16, (Unconfirmed) Nonspecific T wave abnormality has replaced inverted T waves in Lateral leads Confirmed by Pantera MORFIN, Sameer Evangelista ([id number]) on 04/23/2019 9:25:19 AM
--- NOTE | 2019-04-22 19:31 | DISCHARGE SUMMARY ---
ADMISSION DATE: 04/20/2019 DISCHARGE DATE: 04/22/2019 DIAGNOSES: 1. Gastrointestinal bleed, occult. 2. Iron deficiency anemia secondary to chronic blood loss. 3. Atrial fibrillation with rapid ventricular rate (RVR), rate-controlled. 4. Superior mesenteric artery stenosis. CONSULTATIONS: Dr. Moreno, Vascular, Dr. Dawn, Cardiology, Drs. Isidro/Eliazar, GI. PROCEDURES: Endoscopy, EGD on the with normal esophagus, stomach. She has a small lipoma. Basically, this is an 84-year-old patient who came in from Dr. Scherer's office for low blood count. This is a chronic issue for her. She gets iron infusions. She has a history of PVD, diastolic heart failure. She has bilateral iliac and descending aortic stents. She has CVA, certainly at risk for ischemic colitis. She had carotid tumors or occlusions. In any case, she came in with an hemoglobin and hematocrit I think of 6.6 and 21. She was in atrial fibrillation. She was given a blood transfusion. She was placed on Cardizem, I believe Cardiology was consulted. GI was consulted. She underwent an endoscopy on the after her atrial fibrillation was rate controlled, which again did not show any acute bleeding. She has had colonoscopies in the past, which have shown polyps, but no shana source of bleeding. She has had AVMs and polyps, but no clear bleeding. The plan will be now to get a capsule endoscopy per Dr. Zepeda, which will be set up by Dr. Isidro. The patient was to call told to call on Wednesday Dr. Isidro's office for evaluation. She had an EF of 70%. She had moderate aortic stenosis, aortic valve area of 1 cm. I do not know if that is contributing to her anemia, but some left ventricular hypertrophy. Surgery was consulted because of her SMA, which we did because of evaluating for ischemic colitis or mesenteric ischemia. She had severe stenosis at the origins of the superior mesenteric artery and renal arteries, but she had bilateral renal artery stenosis, 75% and 75% of the SMA, but since she had backwards flow and the celiac and the ERIN were patent, Dr. Moreno felt she did not need intervention at this time, also due to the fact he was not sure she would pursue intervention and/or if she was stented, she cannot be placed on anti-platelet therapy at this time. So it is very urgent she gets her capsule endoscopy and figure out where the occult bleeding is coming from. TIME SPENT: 32 minute discharge. DISCHARGE MEDICATIONS: I stopped her aspirin. The cilostazol I left 50 b.i.d. Cozaar 100 daily, vitamin D3 1000 units daily, Folbic daily, Lipitor 80 daily, Norvasc 10 daily, Protonix 40 daily, fenofibrate 48 daily, and Lopressor 50 b.i.d. We will need to follow up with Dr. Dawn as well, Cardiology, in 2 to 4 weeks. cc: MD Natalie Bell Dr., Dr., Dr., Dr.
[2019-04-22] MEDS ORDERED: LOPRESSOR PO SCH (21:00)
== END 2019-04-22 15:45 | disposition home or self-care (01) | DRG 378 ==
LOC: ED 11:39 → 4N 15:43 → EDIPHOLD 17:12 → SUATTDRO 17:12 → 2N 18:09
PROVIDERS: ATTEND Internal Medicine